=== PATIENT | female | born 1970 | race Caucasian/White ===

== ENCOUNTER 2016-11-16 14:59 | Emergency (ER) | payer OTHER ==
[2016-11-16 15:10] VITALS: BP 111/53; PULSE 65; TEMP 97.3; BMI 28.9
--- NOTE | 2016-11-16 16:55 | PDOC ---
History of Present Illness - General Chief Complaint: Pain Stated Complaint: HIP PAIN Time Seen by Provider: 11/16/16 15:43 History Source: Patient Exam Limitations: No Limitations - History of Present Illness Initial Comments: 11/16/16 16:52 My Chief complaint: rt. hip pain History of present illness: Patient is a 46-year-old female here today from [place] with history of brain damage, RBBB, constipation and anxiety here today complaining of right hip pain for the last 3-4 days with slight limp. Patient denies any injury patient is not with staff member is here independently. Patient denies taking anything for pain. Patient reports that pain is worse with ambulation and has a slight limp. Patient denies any fever patient denies any previous hip pain. Patient denies any chance of is currently on her menstrual cycle however we will check urine hCG for regnancy prior to sending her for x-ray of pelvis and right hip. Denies any radiation of pain down leg. Reports that pain in right hip is presently an 8 out of 10 aching in nature. 11/16/16 16:58 11/16/16 16:58 11/17/16 08:40 Timing/Duration: intermittent (for last 3-4 days rt. lateral hip pain ) Severity: moderate Associated Symptoms: reports: other (slight limp on rt. ) Past History - Past Medical History Allergies/Adverse Reactions: Allergies Allergy/AdvReac Type Severity Reaction Status Date / Time Shellfish Allergy Rash Verified 11/16/16 15:04 Home Medications: Ambulatory Orders Docusate Sodium [Colace -] 100 mg PO HS 08/22/14 Polyethylene Glycol 3350 [Miralax 119 gm Btl -] 17 gm PO BID 08/22/14 Psyllium Husk [Metamucil] 0.52 gm PO BID 08/22/14 Cetirizine HCl 10 mg PO DAILY 11/16/16 Citalopram Hydrobromide [Citalopram HBr] 20 mg PO DAILY 11/16/16 Lorazepam [Ativan] 2 mg PO ASDIR 11/16/16 Anemia: No Asthma: No Cancer: No Cardiac Disorders: Yes (RBBB) CVA: No COPD: No CHF: No Dementia: No Diabetes: No GI Disorders: No Disorders: No HTN: No Hypercholesterolemia: No Liver Disease: No Psychiatric Problems: Yes (anxiety) Suicide Attempt (Hx): No Seizures: No Thyroid Disease: No - Surgical History Appendectomy: No Cholecystectomy: No Orthopedic Surgery: No - Immunization History Immunization Up to Date: Yes - Psycho/Social/Smoking Cessation Hx Anxiety: No Suicidal Ideation: No Smoking Status: Yes Smoking History: Never smoked Have you smoked in the past 12 months: Yes Number of Cigarettes Smoked Daily: 10 Information on smoking cessation initiated: Yes 'Breaking Loose' booklet given: 11/16/16 Hx Alcohol Use: No Drug/Substance Use Hx: No Substance Use Type: None Hx Substance Use Treatment: No Review of Systems - Review of Systems Able to Perform ROS?: Yes Constitutional: No: Symptoms Reported HEENTM: No: Symptoms Reported Respiratory: No: Symptoms reported Cardiac (ROS): No: Symptoms Reported ABD/GI: No: Symptoms Reported : No: Symptoms Reported Musculoskeletal: Yes: Joint Pain (rt. hip ). No: Joint Swelling Integumentary: No: Symptoms Reported Neurological: No: Symptoms reported *Physical Exam - Vital Signs Last Vital Signs Temp Pulse Resp BP Pulse Ox 97.3 F L 65 18 111/53 100 11/16/16 15:05 11/16/16 15:05 11/16/16 15:05 11/16/16 15:05 11/16/16 15:05 - Physical Exam General Appearance: Yes: Appropriately Dressed Respiratory/Chest: positive: Lungs Clear, Normal Breath Sounds. negative: Chest Tender, Respiratory Distress Cardiovascular: positive: Regular Rhythm, Regular Rate, S1, S2 Vascular Pulses: Dorsalis-Pedis (R): 4+ Gastrointestinal/Abdominal: positive: Normal Bowel Sounds, Soft. negative: Tender, Organomegaly, Distended, Guarding, Rebound, Tenderness, Hepatomegaly, Spleenomegaly Extremity: positive: Normal Capillary Refill, Normal Inspection, Tender ( rt. lateral/posterior hip). negative: Normal Range of Motion (rt. hip ) Neurologic: positive: Alert, Normal Response, Motor Strength 5/5 (legs b/l ), Respond to painful stimul. negative: Numbness, Sensory Deficit (rt. leg ) Medical Decision Making - Medical Decision Making 11/16/16 16:54 Patient is a 46-year-old female here today from [place] with history of brain damage and depression here today complaining of right hip pain for the last 3-4 days with slight limp. Patient denies any injury patient is not with staff member is here independently. Patient denies taking anything for pain. Patient reports that pain is worse with ambulation and has a slight limp. Patient denies any fever patient denies any previous hip pain. Patient denies any chance of is currently on her menstrual cycle however we will check urine hCG for regnancy prior to sending her for x-ray of pelvis and right hip. Eyes any radiation of pain down leg. right hip pain r/o priscilla abnormality PLAN: urine hcg negative xray rt. hip/pelvis no priscilla abnormality noted 11/16/16 17:00 11/16/16 19:19 *DC/Admit/Observation/Transfer Diagnosis at time of Disposition: Hip pain, right - Discharge Dispostion Disposition: HOME Condition at time of disposition: Stable - Referrals Referrals: José Miguel Ding MD [Primary Care Provider] - Gato Rodriguez MD [Staff Physician] - - Patient Instructions Additional Instructions: Avoid any strenuous activities or exercise FOLLOW UP WITH ORTHOPEDIST WITHIN THE NEXT 2 DAYS CALL [facility] FOR FINAL XRAY READING TAKE IBUPROFEN NEEDED FOR PAIN RETURN TO EMERGENCY ROOM IF SYMPTOMS WORSEN PATIENT VOICED UNDERSTANDING OF DISCHARGE INSTRUCTIONS AND ALL QUESTIONS WERE ANSWERED
[2016-11-16] MEDS ORDERED: IBUPROFEN 600 MG TABLET (FP) PO ONE ×2 (19:20→19:22)
== END 2016-11-16 19:25 | disposition home or self-care (01) ==
LOC: JERFT 14:59
DX: M25.551 Pain in right hip (principal)
CPT/HCPCS: 73523-TC; 84703; 99281-25

== ENCOUNTER 2017-02-11 18:41 | Emergency (ER) | payer OTHER ==
[2017-02-11 18:50] VITALS: BP 110/65; PULSE 69; TEMP 97.5; BMI 23.6
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
== END 2017-02-11 20:05 | disposition home or self-care (01) ==
LOC: JER 18:41 → JERFT 18:41 → JER 20:05
DX: Z04.1 Encounter for examination and observation following transport accident (principal); F41.9 Anxiety disorder, unspecified; Z87.820 Personal history of traumatic brain injury; V74.6XXA Passenger on bus injured in collision with heavy transport vehicle or bus in traffic accident, initial encounter; Y92.414 Local residential or business street as the place of occurrence of the external cause; Y93.89 Activity, other specified; Y99.8 Other external cause status
CPT/HCPCS: 99281-25

== ENCOUNTER 2017-12-31 19:26 | Emergency (ER) | payer OTHER ==
--- NOTE | 2017-12-31 19:53 | PDOC ---
History of Present Illness <Clair Starr - Last Filed: 01/01/18 00:11> - History of Present Illness Initial Comments: patient is a 47 year old female, with a significant past medical history of HTN and fibroids, who presents to the emergency department s/p mechanical fall this afternoon, now with pain in her R hip. Pt states she tripped over "some carts" and land on her R hip and elbow, subsequently experiencing pain in her right hip. She denies any sensation of gross fracture or any focal neuro symptoms after fall. She now states that she cannot ambulate without severe pain in R hip. Pt denies any LOC, dizziness, palpitations, SOB, LE weakness. Pt has never had a fracture before and has never been diagnosed with osteoporosis. The patient denies chest pain, shortness of breath, headache or dizziness. Denies fever, chills, nausea, vomiting, diarrhea and constipation. Denies dysuria, frequency, urgency and hematuria. Allergies: None Past surgical history: Breast reduction, fibroid removal Social History: Current smoker, 1/2 ppd; social drinker 2-3 drinks per day PMD: Dr. José Miguel Ding 12/31/17 20:29 12/31/17 22:01 <Marito Webber - Last Filed: 01/01/18 06:13> - General Stated Complaint: FALL Past History <Clair Starr - Last Filed: 01/01/18 00:11> - Past Medical History Anemia: No Asthma: No Cancer: No Cardiac Disorders: Yes (RBBB) CVA: No COPD: No CHF: No Dementia: No Diabetes: No GI Disorders: No Disorders: No HTN: No Hypercholesterolemia: No Liver Disease: No Psychiatric Problems: Yes (anxiety) Seizures: No Thyroid Disease: No - Surgical History Appendectomy: No Cholecystectomy: No Orthopedic Surgery: No - Immunization History Immunization Up to Date: Yes - Suicide/Smoking/Psychosocial Hx Smoking Status: Yes Smoking History: Never smoked Have you smoked in the past 12 months: Yes Number of Cigarettes Smoked Daily: 10 'Breaking Loose' booklet given: 11/16/16 Hx Alcohol Use: No Drug/Substance Use Hx: No Substance Use Type: None Hx Substance Use Treatment: No <Marito Webber - Last Filed: 01/01/18 06:13> - Past Medical History Allergies/Adverse Reactions: Allergies Allergy/AdvReac Type Severity Reaction Status Date / Time Shellfish Allergy Rash Verified 12/31/17 20:13 Home Medications: Ambulatory Orders Citalopram Hydrobromide [Celexa -] 20 mg PO DAILY 12/31/17 Review of Systems - Review of Systems Comments:: GENERAL/CONSTITUTIONAL: No fever or chills. No weakness. HEAD, EYES, EARS, NOSE AND THROAT: No change in vision. No ear pain or discharge. No sore throat. CARDIOVASCULAR: No chest pain or shortness of breath RESPIRATORY: No cough, wheezing, or hemoptysis. GASTROINTESTINAL: No nausea, vomiting, diarrhea or constipation. GENITOURINARY: No dysuria, frequency, or change in urination. MUSCULOSKELETAL: +pain in R hip; No muscle swelling or pain. No neck or back pain. SKIN: No rash NEUROLOGIC: No headache, vertigo, loss of consciousness, or change in strength/ sensation. ENDOCRINE: No increased thirst. No abnormal weight change HEMATOLOGIC/LYMPHATIC: No anemia, easy bleeding, or history of blood clots. ALLERGIC/IMMUNOLOGIC: No hives or skin allergy. 12/31/17 20:29 <Marito Webber - Last Filed: 01/01/18 06:13> *Physical Exam - Vital Signs Last Vital Signs Temp Pulse Resp BP Pulse Ox 97.8 F 61 19 130/67 100 12/31/17 20:11 12/31/17 20:11 12/31/17 20:11 12/31/17 20:11 12/31/17 20:11 <Clair Starr - Last Filed: 01/01/18 00:11> - Physical Exam Comments: GENERAL: Middle aged woman, Awake, alert, and fully oriented, in no acute distress HEAD: No signs of trauma, normocephalic, atraumatic EYES: PERRLA, EOMI, sclera anicteric, conjunctiva clear ENT: Auricles normal inspection, hearing grossly normal, nares patent, oropharynx clear without exudates. Moist mucosa NECK: Normal ROM, supple, no lymphadenopathy, JVD, or masses LUNGS: No distress, speaks full sentences, clear to auscultation bilaterally HEART: Regular rate and rhythm, normal S1 and S2, no murmurs, rubs or gallops, peripheral pulses normal and equal bilaterally. ABDOMEN: Soft, nontender, normoactive bowel sounds. No guarding, no rebound. No masses EXTREMITIES : Focal pain on palpation of greater trochanter on R side. No obvious bony deformities, ecchymoses or lacerations. No pain on active or passive movement of R hip. Normal inspection, no edema. No clubbing or cyanosis. 2+ DP, PT pulses bL. No neuro deficits. NEUROLOGICAL: Cranial nerves II through XII grossly intact. 5/5 strength and preserved sensation BL in all extremities. Normal speech, normal gait, no focal sensorimotor deficits SKIN: Warm, Dry, normal turgor, no rashes or lesions noted 12/31/17 20:29 <Marito Webber - Last Filed: 01/01/18 06:13> ED Treatment Course - LABORATORY CBC & Chemistry Diagram: 12/31/17 21:26 12/31/17 21:26 - ADDITIONAL ORDERS Additional order review: Laboratory Results 12/31/17 12/31/17 21:26 21:26 PT with INR 11.40 INR 1.01 Sodium 140 Potassium 3.6 Chloride 107 Carbon Dioxide 26 Anion Gap 7 L BUN 15 Creatinine 0.6 Creat Clearance w eGFR > 60 Random Glucose 83 Calcium 8.4 L Total Bilirubin 0.4 D AST 30 ALT 63 Alkaline Phosphatase 137 H Total Protein 6.8 Albumin 3.6 12/31/17 21:26 RBC 4.07 MCV 91.2 MCHC 33.4 RDW 14.4 MPV 9.8 Neutrophils % 73.8 D Lymphocytes % 17.3 D Monocytes % 6.7 Eosinophils % 1.4 Basophils % 0.8 - Medications Given in the ED: ED Medications Discontinued Medications Generic Name Dose Route Start Last Admin Trade Name Freq PRN Reason Stop Dose Admin Ketorolac Tromethamine 30 mg 12/31/17 21:59 12/31/17 22:06 Toradol Injection - IM 12/31/17 22:00 30 mg ONCE ONE Administration Morphine Sulfate 4 mg 12/31/17 21:16 12/31/17 21:42 Morphine Injection - IVPUSH 12/31/17 21:17 4 mg ONCE ONE Administration <Clair Starr - Last Filed: 01/01/18 00:11> - LABORATORY CBC & Chemistry Diagram: 12/31/17 21:26 12/31/17 21:26 <Marito Webber - Last Filed: 01/01/18 06:13> Medical Decision Making - Medical Decision Making patient is a 47 year old female, with a significant past medical history of HTN and fibroids, who presents to the emergency department s/p mechanical fall this afternoon, now with pain in her R hip. Pt with preserve neuro function in R leg , no obvious fractures or lacerations. No headstrike. Plan: - XR of R Hip, Pelvis - Pain control with IV - CBC, CMP, PT/INR 12/31/17 20:41 No fx on imaging. Pain better controlled, VSS. Counseled on pain control. Will discharge home with outpt f/u with PCP. 01/01/18 06:12 <Marito Webber - Last Filed: 01/01/18 06:13> *DC/Admit/Observation/Transfer <Clair Starr - Last Filed: 01/01/18 00:11> - Discharge Dispostion Decision to Admit order: No <Marito Webber - Last Filed: 01/01/18 06:13> Diagnosis at time of Disposition: Pain - Discharge Dispostion Disposition: HOME Condition at time of disposition: Stable - Referrals Referrals: ON STAFF,NOT [Primary Care Provider] - - Patient Instructions Additional Instructions: Ibuprofen and/or tylenol for back pain.
[2017-12-31 20:13] VITALS: BP 130/67; PULSE 61; TEMP 97.8; BMI 23.3
[2017-12-31] MEDS ORDERED: morphine CARPU-JECT 4 MG/1 ML DISP.SYRIN IVPUSH ONE (21:16)
[2017-12-31] MEDS ORDERED: morphine SULFATE 4 MG/ML VIAL ONE (21:33)
[2017-12-31 21:42] LABS: BASO % 0.8 % (0-2.0); EOS % 1.4 % (0-4.5); HEMATOCRIT 37.1 % (32.4-45.2); HEMOGLOBIN 12.4 GM/dL (10.7-15.3); LYMPH % 17.3 % (8-40); MCH 30.5 pg (25.7-33.7); MCHC 33.4 g/dl (32.0-36.0); MEAN CELL VOLUME 91.2 fl (80-96); MEAN PLT VOLUME 9.8 fl (7.5-11.1); MONO % 6.7 % (3.8-10.2); NEUT % 73.8 % (42.8-82.8); PLATELET COUNT 220 K/MM3 (134-434); RBC 4.07 M/mm3 (3.60-5.2); RDW 14.4 % (11.6-15.6); WHITE BLOOD COUNT 10.5 K/mm3 (4.0-10.0)
[2017-12-31] MEDS ORDERED: KETOROLAC TROMETHAMINE 30 MG/1 ML VIAL IM ONE (21:59)
[2017-12-31 22:00] LABS: INR 1.01 (0.82-1.09); PROTHROMBIN TIME (PATIENT) 11.4 SEC (9.7-13.0)
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
[2017-12-31] MEDS ORDERED: KETOROLAC TROMETHAMINE 30 MG/1 ML VIAL ONE (22:04)
[2017-12-31 22:21] LABS: ALBUMIN 3.6 g/dl (3.4-5.0); ANION GAP 7 (8-16); BILIRUBIN,TOTAL 0.4 mg/dL (0.2-1.0); BLOOD UREA NITROGEN 15 mg/dL (7-18); CALCIUM 8.4 mg/dL (8.5-10.1); CHLORIDE 107 mmol/L (98-107); CO2 26 mmol/L (21-32); CREATININE 0.6 mg/dL (0.55-1.02); GLUCOSE,RANDOM 83 mg/dL (74-106); POTASSIUM 3.6 mmol/L (3.5-5.1); SGOT/AST 30 U/L (15-37); SGPT/ALT 63 U/L (12-78); SODIUM 140 mmol/L (136-145); TOT PROT 6.8 g/dl (6.4-8.2)
[2017-12-31 22:22] LABS: ALK PHOS 137 U/L (45-117)
== END 2018-01-01 00:28 | disposition home or self-care (01) ==
LOC: SUPCPDRO 19:26 → JER 19:26
DX: M25.551 Pain in right hip (principal); W01.0XXA Fall on same level from slipping, tripping and stumbling without subsequent striking against object, initial encounter; Y93.89 Activity, other specified; Y92.512 Supermarket, store or market as the place of occurrence of the external cause; Y99.8 Other external cause status
CPT/HCPCS: 36415; 72170-TC-FY; 73523-TC-FY; 80053; 85025; 85610; 99282-25

== ENCOUNTER 2020-09-02 04:56 | Day surgery (SDC) | payer OTHER ==
[2020-08-30 09:03] VITALS: BMI 23.6
[2020-09-02] MEDS ORDERED: MIDAZOLAM HCL 2 MG/2 ML SINGLE DOSE VIAL ONE ×2 (07:18)
[2020-09-02] MEDS ORDERED: DEXAMETHASONE SOD PHOSPHATE/PF 10 MG/ML SDV ONE (07:20)
[2020-09-02] MEDS ORDERED: ROPIVACAINE HCL 0.5% 30ML VIAL ONE (07:21)
[2020-09-02] MEDS ORDERED: PROPOFOL 20 ML ONE ×3 (07:57→09:33)
[2020-09-02] MEDS ORDERED: ceFAZolin SODIUM 1 GM VIAL IVPB ONE (08:30)
[2020-09-02] MEDS ORDERED: EPHEDRINE SULFATE/0.9% NACL/PF 50 MG/10 ML SYRINGE NR ONE (08:37)
[2020-09-02] MEDS ORDERED: oxyCODONE HCL 5 MG TABLET PO PRN (09:07)
[2020-09-02] MEDS ORDERED: ONDANSETRON 4 MG/2 ML VIAL IVPUSH PRN (09:07)
[2020-09-02] MEDS ORDERED: LACTATED RINGERS SOLUTION 1,000 ML IV SCH (09:15)
[2020-09-02 12:05] VITALS: BP 117/60; PULSE 60; TEMP 97.5
== END 2020-09-02 11:45 | disposition home or self-care (01) ==
LOC: JASU-SURG 04:56
PROVIDERS: ATTEND Orthopaedic Surgery
PROC: 0PBB4ZZ Excision of Left Clavicle, Percutaneous Endoscopic Approach (ICD-10-PCS; 2020-09-02)
PROC: 0RNK4ZZ Release Left Shoulder Joint, Percutaneous Endoscopic Approach (ICD-10-PCS; principal; 2020-09-02 08:00)
DX: M75.42 Impingement syndrome of left shoulder (principal); M75.52 Bursitis of left shoulder
CPT/HCPCS: 84703; 88304-TC; 94760

== ENCOUNTER 2022-02-21 09:10 | Emergency (ER) | payer OTHER ==
[2022-02-21 09:28] VITALS: BP 138/66; PULSE 60; TEMP 98.1; BMI 25.1
[2022-02-21] MEDS ORDERED: LIDOCAINE HCL 1%, 10 MG/ML (50 mL VIAL) PNB ONE (10:33)
[2022-02-21] MEDS ORDERED: BUPIVACAINE HCL/PF 0.5% (5MG/ML) 10 ML VIAL PNB ONE (10:33)
== END 2022-02-21 11:45 | disposition home or self-care (01) ==
LOC: JERFT 09:10
DX: K08.89 Other specified disorders of teeth and supporting structures (principal)
CPT/HCPCS: 99283-25

== ENCOUNTER 2022-06-15 04:13 | Day surgery (SDC) | payer OTHER ==
[2022-06-11 11:03] VITALS: BMI 27.3
[2022-06-15] MEDS ORDERED: MIDAZOLAM HCL 2 MG/2 ML SINGLE DOSE VIAL ONE (11:59)
[2022-06-15] MEDS ORDERED: DEXAMETHASONE SOD PHOSPHATE 10 MG/1 ML VIAL ONE (12:25)
[2022-06-15] MEDS ORDERED: BUPIVACAINE HCL/PF 0.5% (5MG/ML) 10 ML VIAL ONE (12:25)
[2022-06-15] MEDS ORDERED: PROPOFOL 20 ML ONE (12:49)
[2022-06-15] MEDS ORDERED: ONDANSETRON 4 MG/2 ML VIAL IVPUSH PRN (13:00)
[2022-06-15] MEDS ORDERED: LACTATED RINGERS SOLUTION 1,000 ML IV SCH (13:00)
[2022-06-15] MEDS ORDERED: oxyCODONE HCL 5 MG TABLET PO PRN ×2 (13:00)
[2022-06-15] MEDS ORDERED: DEXAMETHASONE SOD PHOSPHATE 4 MG/1 ML VIAL ONE (13:28)
[2022-06-15] MEDS ORDERED: KETOROLAC TROMETHAMINE 30 MG/1 ML VIAL ONE (13:29)
[2022-06-15] MEDS ORDERED: ceFAZolin SODIUM 1 GM VIAL IVPB ONE (13:30)
[2022-06-15] MEDS ORDERED: ceFAZolin SODIUM 1 GM VIAL ONE ×2 (13:33)
[2022-06-15 15:31] VITALS: RESP 18
[2022-06-15 17:53] VITALS: BP 124/55; PULSE 71; TEMP 97.9
== END 2022-06-15 17:00 | disposition home or self-care (01) ==
LOC: JASU-SURG 04:13
PROVIDERS: ATTEND Orthopaedic Surgery
PROC: 0RQK4ZZ Repair Left Shoulder Joint, Percutaneous Endoscopic Approach (ICD-10-PCS; 2022-06-15)
PROC: 0RNK4ZZ Release Left Shoulder Joint, Percutaneous Endoscopic Approach (ICD-10-PCS; principal; 2022-06-15 11:30)
DX: M75.52 Bursitis of left shoulder (principal); M19.012 Primary osteoarthritis, left shoulder; S43.492A Other sprain of left shoulder joint, initial encounter; X58.XXXA Exposure to other specified factors, initial encounter; Y93.9 Activity, unspecified; Y92.9 Unspecified place or not applicable; Y99.9 Unspecified external cause status
CPT/HCPCS: 94760; C1713; J1100

== ENCOUNTER 2024-10-27 15:32 | Emergency (ER) | payer OTHER ==
[2024-10-27 15:46] VITALS: BP 129/66; PULSE 68; RESP 18; TEMP 98.1; BMI 28.0
[2024-10-27] MEDS ORDERED: IBUPROFEN 600 MG TABLET (FP) PO ONE ×2 (16:42→16:47)
== END 2024-10-27 16:50 | disposition home or self-care (01) ==
LOC: JER 15:32 → JERFT 15:32
DX: S93.401A Sprain of unspecified ligament of right ankle, initial encounter (principal); X50.1XXA Overexertion from prolonged static or awkward postures, initial encounter
CPT/HCPCS: 73610-TC-RT-FY; 99283-25